=== PATIENT | male | born 1955 | race Caucasian/White ===

== ENCOUNTER 2016-11-20 19:07 | Emergency (ER) | payer OTHER ==
[~2016-11-20] VITALS: Ht 177.8 cm; Wt 78.5 kg
[~2016-11-20 19:07] MED LIST: ATOR80TA63 PO; BACL20TA PO; BEN50 PO; CEPH-568 PO; DULO60CA41 PO; ENAL5TAB85 PO; GABA-531 PO; HYDR-4100 PO; HYDR4TAB57 PO; LEVE500T13 PO; LOSA50TA3 PO; MET10 PO; METO-442 PO; OXYC10TA71 PO; PARO30TA62 PO; SUVO15TA PO; TAMS-11 PO; TRAM50TA92 PO; TRAZ-126 PO; WARF2.5T2 PO; WARF5TAB2 PO
[2016-11-20 19:19] VITALS: BP 107/81; PULSE 96; RESP 18; TEMP 97.3; O2SAT 98
--- NOTE | 2016-11-20 19:23 | NUR ---
Patient to ER bed 7 to gown for evaluation. Side rails up. Report given to Tico BARAHONA.
--- NOTE | 2016-11-20 19:25 | NUR ---
Pt bib for c/o left periorbital bruising from a fall today at home, unwitnessed. Pt is taking coumadin at home per . Pt uses a cane at home. Pt follows commands when asked. Addendum: 11/20/16 at 2002 by CHARLIE Pt is non verbal at moment. Per pt is alcoholic, is on methadone for pain. Pt is placed on manager monitoring and continuous pulse ox.
[2016-11-20 19:46] LABS: HEMATOCRIT 46.7 % (36-54); HEMOGLOBIN 15.4 g/dL (14.0-18.0); MEAN CORPUSCULAR HEMOGLOBIN 31 pg (27-31); MEAN CORPUSCULAR HGB CONC 33 % (32-36); MEAN CORPUSCULAR VOLUME 95 fL (79.0-98.0); PLATELET COUNT (AUTO) 101 K/uL (130-430); RED BLOOD CELL COUNT(AUTO) 4.91 MIL/uL (4.2-6.2); RED CELL DISTRIBUTION WIDTH 13.5 % (9.0-15.0); WHITE BLOOD COUNT (AUTO) 2.7 K/uL (4.8-10.8)
[2016-11-20] MEDS ORDERED: LIP40 PO (19:46)
[2016-11-20] MEDS ORDERED: HYDR-4100 PO (19:47)
[2016-11-20] MEDS ORDERED: MET10 PO (19:55)
--- NOTE | 2016-11-20 19:55 | NUR ---
Med recon done
[2016-11-20 19:57] LABS: CALCIUM 8.1 mg/dL (8.4-11.0); CREATININE 0.84 mg/dL (0.55-1.30); POTASSIUM 3.6 mmol/L (3.5-5.1)
[2016-11-20 20:02] LABS: ALBUMIN 3.7 g/dL (3.4-4.8); TOTAL BILIRUBIN 0.3 mg/dL (0.0-1.0); TOTAL PROTEIN, SERUM 7.7 g/dL (6.4-8.3)
[2016-11-20 20:13] LABS: ATYPICAL LYMPHOCYTES % 0 % (0-0); BAND % (MANUAL) 0 % (0-6); BASOPHILS % (MANUAL) 0 % (0-2); EOSINOPHILS % (MANUAL) 2 % (0-7); LYMPHOCYTES % (MANUAL) 38 % (20-46); MONOCYTES % (MANUAL) 11 % (0-11)
[2016-11-20] MEDS ORDERED: NACL 0.9% 1,000 ML IV ONE (20:17)
[2016-11-20 20:20] LABS: INR 4.6 (0.80-1.20); PROTHROMBIN TIME 52.8 SECS (9.5-12.5)
[2016-11-20] MEDS ORDERED: MORPHINE 2 MG/ML INJ. SYRINGE IVP ONE (20:30)
[2016-11-20] MEDS ORDERED: LORazepam 2 MG/ML VIAL IVP ONE (22:00)
--- NOTE | 2016-11-20 22:20 | NUR ---
Pt took out IV, bleeding controlled, Dr. Martinez notified. IV restarted to right AC 20 gauge by JUN Delatorre. IV infusion of NS continued.
[2016-11-20] MEDS ORDERED: LORazepam 2 MG/ML VIAL (FOR ER USE) ONE (22:31)
--- NOTE | 2016-11-20 22:32 | NUR ---
Pt given Ativan 2mg per MD order for agitation, pulling out IV earlier.
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
--- NOTE | 2016-11-20 22:47 | NUR ---
Report given to JUN Russell.
--- NOTE | 2016-11-20 23:00 | NUR ---
Pt has increased anxiety and is trying to get out of bed. Pt is a risk for fall due to ALOC. Dr. Martinez notified.
--- NOTE | 2016-11-20 23:00 | NUR ---
Reviewed sepsis protocol with Dr. Martinez. No change in orders at this time.
[2016-11-20] MEDS ORDERED: chlordiazePOXIDE HCL 25 MG CAPSULE PO ONE (23:15)
--- NOTE | 2016-11-20 23:15 | NUR ---
Pt placed in 2 point restraints on both wrists. Positive CMS before and after placed soft restraints. Pt tolerated well.
--- NOTE | 2016-11-21 00:15 | NUR ---
Restraints rechecked. Good CMS in upper extremities.
[2016-11-21 00:22] LABS: BILIRUBIN,URINE NEGATIVE (NEGATIVE); BLOOD, URINE NEGATIVE (NEGATIVE); CLARITY/URINE HAZY (CLEAR); COLOR,URINE YELLOW (YELLOW); GLUCOSE,URINE NEGATIVE (NEGATIVE); KETONES,URINE NEGATIVE (NEGATIVE); LEUKOCYTE ESTERASE ,URINE NEGATIVE (NEGATIVE); NITRITE, URINE POSITIVE (NEGATIVE); PROTEIN URINE 2+ (NEGATIVE); UROBILINOGEN,URINE 0.2 (0.2-1.0)
[2016-11-21 00:34] LABS: BACTERIA,URINE MANY /HPF (None Seen); RBC,URINE 0-3 /HPF (0-3)
[2016-11-21 00:35] LABS: MUCUS,URINE 1+ /LPF (None Seen)
[2016-11-21 00:36] LABS: BARBITURATE, URINE NEGATIVE (NEG <=200); BENZODIAZEPINE, URINE NEGATIVE (NEG <=150); CANNABINOID, URINE NEGATIVE (NEG <=50); COCAINE, URINE NEGATIVE (NEG <=150); METHAMPHETAMINES SCREEN,URINE NEGATIVE (NEG <=500); PHENCYCLIDINE SCREEN,URINE NEGATIVE (NEG <=25); URINE AMPHETAMINE NEGATIVE (NEG <=500); URINE METHADONE POSITIVE (NEG <=200)
[2016-11-21 00:37] LABS: OPIATE, URINE POSITIVE (NEG <=100); UR TRICYCLIC ANTIDEPRESSANTS NEGATIVE (NEG <=300); URINE OXYCODONE SCREEN POSITIVE (NEG <=100); URINE PROPOXYPHENE SCREEN NEGATIVE (NEG <=300)
--- NOTE | 2016-11-21 01:15 | NUR ---
Restraints rechecked. Good CMS in upper extremities. Restraints released and placed back on.
[2016-11-21] MEDS ORDERED: LORazepam 2 MG/ML VIAL IVP ONE (01:45)
[2016-11-21] MEDS ORDERED: LORazepam 2 MG/ML VIAL (FOR ER USE) ONE (01:53)
--- NOTE | 2016-11-21 02:15 | NUR ---
Restraints rechecked. Good CMS in upper extremities.
--- NOTE | 2016-11-21 02:24 | NUR ---
Consent signed per patient agreeing to administration of blood. Blood has been type and crossmatched. Blood sent from blood bank. Information on unit of blood checked against patient wristband at bedside by two nurses. All information matches. Patient or responsible democrat informed of potential complications associated with blood transfusion. Informed of possible transfusion reaction symptoms. Aware of need to notify nurse at once of itching, shortness of breath, flushing, feeling of impending doom, or other symptoms not previously present. Vital signs taken within 5 minutes prior to initiation of transfusion. RN will remain with patient for first 15 minutes of transfusion at which time vital signs will be re-assessed.
[2016-11-21 03:20] VITALS: BP 142/81; PULSE 86; RESP 18; TEMP 97.3; O2SAT 100
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
== END 2016-11-21 03:20 ==
LOC: SED 19:07
DX: S00.12XA Contusion of left eyelid and periocular area, initial encounter (principal); S00.81XA Abrasion of other part of head, initial encounter; S09.90XA Unspecified injury of head, initial encounter; R41.82 Altered mental status, unspecified; F10.229 Alcohol dependence with intoxication, unspecified; C18.9 Malignant neoplasm of colon, unspecified; I25.2 Old myocardial infarction; E11.9 Type 2 diabetes mellitus without complications; K21.9 Gastro-esophageal reflux disease without esophagitis; I10 Essential (primary) hypertension; W19.XXXA Unspecified fall, initial encounter; Y93.89 Activity, other specified; Y99.8 Other external cause status; Y92.89 Other specified places as the place of occurrence of the external cause
CPT/HCPCS: 36415; 70450; 70486; 80053; 80307; 81000; 85007; 85027; 85610; 85730; 86900; 86901; 87086; 93005; 96361; 96374; 96375; 96376; 99285; G0482; J2060 ×2; J2270; J7040; P9059; 87186-TC

== ENCOUNTER 2017-01-05 14:56 | Inpatient (IN) | payer OTHER ==
[~2017-01-05] VITALS: Ht 177.8 cm; Wt 88.5 kg
[2017-01-05 14:56] VITALS: BP_SYST 112
[~2017-01-05 14:56] MED LIST changes: -ATOR80TA63 PO; -BACL20TA PO; -BEN50 PO; -CEPH-568 PO; -GABA-531 PO; -HYDR4TAB57 PO; -LEVE500T13 PO; +LIP40 PO; -LOSA50TA3 PO; -OXYC10TA71 PO; -PARO30TA62 PO; -SUVO15TA PO; -TRAM50TA92 PO; -WARF5TAB2 PO
--- NOTE | 2017-01-05 15:00 | NUR ---
pt. to bed 2, assumed pt. care
--- NOTE | 2017-01-05 15:00 | NUR ---
dr. solorzano at bedside examining the pt.
[2017-01-05] MEDS ORDERED: LORazepam 2 MG/ML VIAL (FOR ER USE) IVP ONE ×3 (15:15→16:30)
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
--- NOTE | 2017-01-05 15:40 | NUR ---
pt. out to radiolody via koffi
[2017-01-05 15:57] LABS: RED BLOOD CELL COUNT(AUTO) 3.39 MIL/uL (4.2-6.2)
[2017-01-05 16:00] LABS: CALCIUM 7.8 mg/dL (8.4-11.0); CREATININE 0.71 mg/dL (0.55-1.30); POTASSIUM 3.3 mmol/L (3.5-5.1)
--- NOTE | 2017-01-05 16:00 | NUR ---
pt. back to bed 2 from radiology via k[facility]
[2017-01-05 16:03] LABS: HEMATOCRIT 32.5 % (36-54); MEAN CORPUSCULAR HEMOGLOBIN 33 pg (27-31); MEAN CORPUSCULAR HGB CONC 34 % (32-36); MEAN CORPUSCULAR VOLUME 96 fL (79.0-98.0); PLATELET COUNT (AUTO) 166 K/uL (130-430)
[2017-01-05 16:06] LABS: WHITE BLOOD COUNT (AUTO) 2.6 K/uL (4.8-10.8)
[2017-01-05 16:12] LABS: ALBUMIN 2.8 g/dL (3.4-4.8); TOTAL BILIRUBIN 0.3 mg/dL (0.0-1.0); TOTAL PROTEIN, SERUM 6.4 g/dL (6.4-8.3)
[2017-01-05 16:14] LABS: BAND % (MANUAL) 5 % (0-6); BASOPHILS % (MANUAL) 0 % (0-2); EOSINOPHILS % (MANUAL) 2 % (0-7); LYMPHOCYTES % (MANUAL) 29 % (20-46); MONOCYTES % (MANUAL) 31 % (0-11)
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
[2017-01-05] MEDS ORDERED: NACL 0.9% 1,000 ML IV ONE (16:30)
[2017-01-05] MEDS ORDERED: MORPHINE 4 MG/ML INJ. SYRINGE IVP ONE (16:45)
--- NOTE | 2017-01-05 17:00 | NUR ---
pt. agitated, unable to run CT scan since pt. not able to stop moving
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
--- NOTE | 2017-01-05 17:30 | NUR ---
restraining orders received as per MD pt. very agitates, continuously trying to get out of bed, behavioral restraint applied
[2017-01-05] MEDS ORDERED: HALOPERIDOL LACTATE 5 MG/ML VIAL IM ONE (17:45)
--- NOTE | 2017-01-05 18:20 | NUR ---
haldol 5 mg admin as per MD orders, pt. tolerated well
--- NOTE | 2017-01-05 18:25 | NUR ---
pt. to to CT via ceci
--- NOTE | 2017-01-05 18:46 | NUR ---
Patient returned from CT. Patient was again thrashing around in CT, unable to perform ordered studies. Dr. Galloway is aware.
[2017-01-05] MEDS ORDERED: DIPHENHYDRAMINE INJ 50 MG/ML VIAL IVP ONE (19:00)
[2017-01-05] MEDS ORDERED: MIDAZOLAM HCL 5 MG/5 ML VIAL IVP ONE (22:00)
[2017-01-05] MEDS ORDERED: DIAZEPAM 10 MG/2 ML DISP.SYRIN IVP ONE (22:00)
--- NOTE | 2017-01-05 22:50 | NUR ---
Patient will be admitted to care of dr. mane. Admitted to med surg unit. Will go to room 132 a. Belongings list completed. Summary report printed. Report will be given at bedside.
[2017-01-05 23:03] VITALS: BP_SYST 160
--- NOTE | 2017-01-05 23:03 | NUR ---
Admission Note Received patient from ER with diagnosis of ALOC. Initial Plan of Care discussed-patient verbalized understanding. Family at bedside. Oriented to room, call light, pain management and safety.
[2017-01-05] MEDS ORDERED: ZOLPIDEM TARTRATE 5 MG TABLET PO PRN (23:30)
[2017-01-05] MEDS ORDERED: ACETAMINOPHEN 325 MG TABLET PO PRN (23:30)
[2017-01-05] MEDS ORDERED: chlordiazePOXIDE HCL 25 MG CAPSULE PO PRN (23:30)
[2017-01-05] MEDS ORDERED: DOCUSATE SODIUM 100 MG CAPSULE PO PRN (23:30)
[2017-01-05] MEDS ORDERED: ONDANSETRON HCL 4 MG/2 ML VIAL IVP PRN (23:30)
--- NOTE | 2017-01-05 23:30 | NUR ---
Initial Notes Received patient laying in bed. Patient lethargic, arousable to name and light shaking. Patient oriented only to name at this time, extremely drowsy. Patient appears in no acute distress or pain at this time. Breathing even and unlabored on room air. Vital signs stable. Attempted to educate patient on use of call light for assistance and fall precautions, patient unable to do drowsyness. Fall precautions in place, call light in hand, will continue to monitor. Siderail padding in use, seizure precautions in place.
--- NOTE | 2017-01-05 23:41 | NUR ---
left message for Alexa Angeles regarding pt's admission. No return call at this time.
[2017-01-05] MEDS: POTASSIUM CHLORIDE 10 MEQ TAB.PRT.SR PO PRN (23:56)
[2017-01-06] VITALS (7 sets, daily range): BP systolic 110–187
[2017-01-06] MEDS: NACL 0.9% 1,000 ML IV SCH ×3 (00:16→23:53)
--- NOTE | 2017-01-06 01:30 | NUR ---
MD communication Spoke with Dr. Colon regarding patient's elevated BP. Orders received.
[2017-01-06] MEDS ORDERED: cloNIDine HCL 0.2 MG TABLET PO PRN (01:45)
[2017-01-06] MEDS: POTASSIUM CHLORIDE 10 MEQ TAB.PRT.SR PO PRN ×2 (01:54→08:40)
--- NOTE | 2017-01-06 02:29 | NUR ---
Rounds Patient resting in bed with eyes closed, easily aroused. Patient more awake/alert, able to answer questions appropriately. Patient denies any acute distress or pain. Breathing even and unlabored. IV site patent/clean/dry. Assisted patient to bathroom, slightly unsteady gait. Needs addressed. Call light in hand, fall precautions in place, will continue to monitor.
--- NOTE | 2017-01-06 03:48 | NUR ---
Notes Patient getting out of bed unassisted, stating he is going home now. Assisted patient back to bed. Explained to patient that he is extremely unsteady at this time, and easily disoriented. Attempted to contact patient's Alexa via telephone per patient's request to come pick patient up. No answer. Educated patient on importance of continuing treatment and high risk of hurting self if patient leaves at this time. Patient agreed to stay. Patient appears in no acute distress but remains unsteady on feet, and disoriented/forgetful at times. Call light in hand, fall precautions in place. Will continue to monitor.
--- NOTE | 2017-01-06 05:49 | NUR ---
Family Communication Spoke with Alexa, patient's , on telephone to update family on patient's status. is aware of patient's location, and reason for admission. Patient was able to talk to .
--- NOTE | 2017-01-06 06:39 | NUR ---
Closing Notes Patient resting in bed with eyes closed, easily aroused. Patient denies any acute distress or pain when asked. Breathing even and unlabored on room air. IV site patent/clean/dry, no S/S infection/infiltration noted. Needs addressed throughout shift. Call light in hand, fall precautions in place. Will continue to monitor for changes and safety, and endorse all patient care/needs to oncoming nurse.
[2017-01-06 07:01] LABS: HEMATOCRIT 37.4 % (36-54); HEMOGLOBIN 12.5 g/dL (14.0-18.0); MEAN CORPUSCULAR HEMOGLOBIN 32 pg (27-31); MEAN CORPUSCULAR HGB CONC 34 % (32-36); MEAN CORPUSCULAR VOLUME 96 fL (79.0-98.0); PLATELET COUNT (AUTO) 176 K/uL (130-430); RED BLOOD CELL COUNT(AUTO) 3.89 MIL/uL (4.2-6.2); RED CELL DISTRIBUTION WIDTH 14.7 % (9.0-15.0); WHITE BLOOD COUNT (AUTO) 3.9 K/uL (4.8-10.8)
[2017-01-06 07:13] LABS: CALCIUM 8.1 mg/dL (8.4-11.0); CREATININE 0.82 mg/dL (0.55-1.30); POTASSIUM 3.1 mmol/L (3.5-5.1)
--- NOTE | 2017-01-06 07:32 | NUR ---
AM Rounds: Received pt sitting semi-fowlers in bed. No acute signs of distress noted at this time. Pt is breathing even and unlabored on room air and he is easily arousable to name. No tremors or seizure activity noted. IV intact to RUE with no redness or swelling noted to site. Call light in reach. Fall precautions in place. Bed alarm on and bed in lowest position. No other needs noted at this time. Continue to monitor.
[2017-01-06] MEDS: TAMSULOSIN HCL 0.4 MG CAP PO SCH (08:40)
[2017-01-06] MEDS: ATORVASTATIN 20 MG TABLET PO SCH (08:40)
[2017-01-06] MEDS: METHADONE HCL 10 MG TABLET PO SCH ×3 (08:40→20:25)
[2017-01-06] MEDS: DULoxetine HCL 30 MG CAPSULE.DR (CYMBALTA) PO SCH (08:40)
[2017-01-06] MEDS: METOPROLOL TARTRATE 50 MG TABLET PO SCH ×2 (08:41→20:26)
[2017-01-06] MEDS: MAGNESIUM SULFATE 50 ML IV PRN (08:41)
[2017-01-06] MEDS ORDERED: traZODone HCL 50 MG TABLET (DESYREL) PO SCH (09:00)
[2017-01-06] MEDS ORDERED: ENALAPRIL MALEATE 5 MG TABLET (VASOTEC) PO SCH (09:00)
[2017-01-06 09:35] LABS: BAND % (MANUAL) 0 % (0-6); BASOPHILS % (MANUAL) 0 % (0-2); EOSINOPHILS % (MANUAL) 2 % (0-7); LYMPHOCYTES % (MANUAL) 11 % (20-46); MONOCYTES % (MANUAL) 26 % (0-11)
--- NOTE | 2017-01-06 09:48 | NUR ---
RN Rounds: AM meds given per MD order. Pt tolerates well. IV fluids and Mag replacement infusing well at this time. Call light in reach. Fall precautions in place. Continue to monitor.
[2017-01-06] MEDS ORDERED: POTASSIUM CHLORIDE 40 MEQ, LIDOCAINE JECT 2% PF 100 MG 50 MG in NS 250 ML IV ONE (10:15)
--- NOTE | 2017-01-06 10:24 | NUR ---
PSYCH CONSULT Spoke with Teena regarding request for consultation with Dr. Murguia ([phone]) for reason: depression.
[2017-01-06] MEDS ORDERED: HYDROCHLOROTHIAZIDE 25 MG TABLET (HCTZ) PO ONE (10:45)
[2017-01-06 10:51] LABS: INR 1.3 (0.80-1.20)
[2017-01-06] MEDS: FOLIC ACID 1 MG, THIAMINE HCL 100 MG, MAGNESIUM SULFATE 1 GM, MVI 10 ML in NACL 0.9% 1,... IV SCH (11:34)
--- NOTE | 2017-01-06 11:37 | NUR ---
Rounds: Pt sitting semi-fowlers in bed. No acute signs of distress noted. Banana bag infusing well to RUE with no redness or swelling noted to site. Fall precautions in place. Call light in reach. Continue to monitor.
--- NOTE | 2017-01-06 13:33 | NUR ---
IV RE-INSERTION: Redness and swelling noted to IV site. Restarted on right forearm. Successful after [1] attempt. Resumed current IVF and banana bag. Will observe for any signs of infiltration. IV catheter removed to RUE and elevated on pillow.
--- NOTE | 2017-01-06 15:09 | NUR ---
Rounds: Abdominal ultrasound in progress. IV intact to RUE and infusing fluids well. Call light in reach. Continue to monitor.
[2017-01-06] MEDS: FLUTICASONE PROPIONATE 50 mCg/SPRAY 16 GM NS SCH ×2 (17:29→20:25)
[2017-01-06] MEDS: WARFARIN SODIUM 2.5 MG TABLET PO SCH (17:31)
--- NOTE | 2017-01-06 17:47 | NUR ---
Rounds: Pt sitting semi-fowlers in bed. No acute signs of distress noted. Pt medicated per MD order. Pt tolerates well. Call light in reach. Fall and seizure precautions in place. Continue to monitor.
--- NOTE | 2017-01-06 18:16 | NUR ---
Closing Note: Pt sitting semi-fowlers in bed and eating dinner at this time. IV intact to RUE with no redness or swelling noted to site. Pt denies pain. No seizure activity noted. Pt denies suicidal ideation. Call light in reach. Fall and seizure precautions in place. No other needs noted at this time. Pt is able to make needs known and verbalize understanding. Endorse plan of care to TY BARAHONA.
--- NOTE | 2017-01-06 20:00 | NUR ---
Initial Notes Received patient resting in bed, awake, alert, oriented. Patient denies any acute distress or pain at this time. Vital signs stable. Breathing even and unlabored on room air. IV site patent/clean/dry. Skin tear/scab noted to left arm. Educated patient on use of call light for assistance and fall precautions, patient verbalized understanding. Call light in hand, will continue to monitor.
[2017-01-06] MEDS: ENOXAPARIN SODIUM 40 MG/0.4 ML SYRINGE SUBCUT SCH (20:24)
[2017-01-06] MEDS: traZODone HCL 50 MG TABLET (DESYREL) PO SCH (20:26)
[2017-01-06] MEDS: ENALAPRIL MALEATE 10 MG TABLET (VASOTEC) PO SCH (20:27)
--- NOTE | 2017-01-06 22:00 | NUR ---
Rounds Patient resting in bed with eyes closed, easily aroused. Patient denies any acute distress or pain at this time. Breathing is even and unlabored. IV site patent/clean/dry. Needs addressed. Call light in hand, fall precautions in place, siderail padding in use. Will continue to monitor.
[2017-01-06] MEDS: HYDROcodone/ACETAMIN 10-325 MG TAB PO PRN (23:51)
[2017-01-07] VITALS (8 sets, daily range): BP systolic 110–150
--- NOTE | 2017-01-07 | NUR ---
Rounds Patient resting in bed, awake. Patient denies any acute distress. Medicated patient for pain per MD orders. Breathing is even and unlabored. IV site patent/clean/dry. Assisted patient to ambulate around room. Needs addressed. Call light in hand, fall precautions in place. Will continue to monitor.
--- NOTE | 2017-01-07 02:10 | NUR ---
Rounds and Endorsement of patient Patient resting in bed with eyes closed, easily aroused. Patient denies any acute distress or pain. Breathing is even and unlabored. IV site patent/clean/dry. Call light in hand. Endorse patient to Francisco BARAHONA.
--- NOTE | 2017-01-07 02:15 | NUR ---
assumed care of the pt. 4 the remainder of the shift.damir;rn provided the pt's info/data.pt.presents stable status. pt.presents quiescent affect;calm,asleep.iv fluids infusing:pt.receiving the administration of ns:&banana-bag. alternating.i recieve the pt.w/ the administraton of the ns.via iv access:lt.antecubital.pt.utlizing urinal.call light w/in pt's reach.o2 @room air.no distress/discomfort manifested.
[2017-01-07] MEDS: MORPHINE 2 MG/ML INJ. SYRINGE IVP PRN ×2 (02:47→20:34)
--- NOTE | 2017-01-07 02:50 | NUR ---
pt.requested pain medication.i have administered morphine;2mg ivp.i have emptied the urinal.i conveyed 2 the pt. that snacks r available.pt.requested snacks.i have provided the snacks.2 f/u re;pain efficacy / pain mgx protocol. call light placed w/in pt's reach.
--- NOTE | 2017-01-07 05:16 | NUR ---
pt.assessed.iv fluids assessed.[facility]in[facility] laboratory animal care has drawn the blood samples.no request@this hour:located the urinal 4 the pt. call light palced w/in the pt's reach.
[2017-01-07] MEDS: NACL 0.9% 1,000 ML IV SCH ×2 (05:23→10:58)
[2017-01-07 06:49] LABS: CREATININE 0.76 mg/dL (0.55-1.30)
[2017-01-07] MEDS: HYDROcodone/ACETAMIN 10-325 MG TAB PO PRN (06:52)
[2017-01-07 07:12] LABS: HEMATOCRIT 32.3 % (36-54); HEMOGLOBIN 10.9 g/dL (14.0-18.0); MEAN CORPUSCULAR HEMOGLOBIN 32 pg (27-31); MEAN CORPUSCULAR HGB CONC 34 % (32-36); MEAN CORPUSCULAR VOLUME 96 fL (79.0-98.0); PLATELET COUNT (AUTO) 158 K/uL (130-430); RED BLOOD CELL COUNT(AUTO) 3.37 MIL/uL (4.2-6.2)
[2017-01-07 07:20] LABS: INR 1.1 (0.80-1.20); PROTHROMBIN TIME 11.8 SECS (9.5-12.5)
[2017-01-07 07:34] LABS: WHITE BLOOD COUNT (AUTO) 2.8 K/uL (4.8-10.8)
[2017-01-07] MEDS: DULoxetine HCL 30 MG CAPSULE.DR (CYMBALTA) PO SCH (09:35)
[2017-01-07] MEDS: MULTIVITAMINS TAB 1 TABLET PO SCH (09:35)
[2017-01-07] MEDS: MAGNESIUM SULFATE 50 ML IV PRN (09:35)
[2017-01-07] MEDS: FLUTICASONE PROPIONATE 50 mCg/SPRAY 16 GM NS SCH ×2 (09:35→21:00)
[2017-01-07] MEDS: METOPROLOL TARTRATE 50 MG TABLET PO SCH ×2 (09:36→20:32)
[2017-01-07] MEDS: HYDROCHLOROTHIAZIDE 25 MG TABLET (HCTZ) PO SCH (09:36)
[2017-01-07] MEDS: TAMSULOSIN HCL 0.4 MG CAP PO SCH (09:37)
[2017-01-07] MEDS: ENALAPRIL MALEATE 10 MG TABLET (VASOTEC) PO SCH ×2 (09:37→20:32)
[2017-01-07] MEDS: METHADONE HCL 10 MG TABLET PO SCH ×3 (09:37→20:32)
[2017-01-07] MEDS: POTASSIUM CHLORIDE 10 MEQ TAB.PRT.SR PO PRN ×2 (09:37→20:31)
[2017-01-07] MEDS: ATORVASTATIN 20 MG TABLET PO SCH (09:37)
[2017-01-07 09:41] LABS: ATYPICAL LYMPHOCYTES % 0 % (0-0); BAND % (MANUAL) 0 % (0-6); BASOPHILS % (MANUAL) 0 % (0-2); EOSINOPHILS % (MANUAL) 2 % (0-7); LYMPHOCYTES % (MANUAL) 12 % (20-46); MONOCYTES % (MANUAL) 31 % (0-11)
[2017-01-07] MEDS ORDERED: MAGNESIUM SULFATE 50 ML IV ONE (09:45)
[2017-01-07] MEDS: THIAMINE HCL 100 MG TABLET PO SCH (10:03)
[2017-01-07] MEDS: FOLIC ACID 1 MG, THIAMINE HCL 100 MG, MAGNESIUM SULFATE 1 GM, MVI 10 ML in NACL 0.9% 1,... IV SCH (10:54)
[2017-01-07] MEDS: POTASSIUM CHLORIDE 40 MEQ, LIDOCAINE JECT 2% PF 100 MG 50 MG in NS 250 ML IV ONE ×2 (11:00→12:24)
[2017-01-07] MEDS: WARFARIN SODIUM 2.5 MG TABLET PO SCH (17:28)
--- NOTE | 2017-01-07 18:47 | NUR ---
OPENING NOTE/00 RECEIVED REPORT FROM OFF GOING COMPENSATION ADJUSTER NURSE. PATIENT RESTING COMFORTABLY, COMPLAINTS OF MODERATE PAIN. CHRONIC PAIN. NO NAUSEA, OR VOMITING AT THIS TIME. PATIENT HAS NO NOTABLE SIGNS OF DISTRESS. PATIENTS BED IN LOWEST POSITION, CALL LIGHT WITHIN REACH, PATIENTS BED ALARM IS ON, AND 2 SIDE RAILS ARE UP. PATIENT BELONGINGS WITHIN REACH. WILL CONTINUE TO MONITOR FOR CHANGES IN STATUS. LATE CHARTING DUE TO PATIENT CARE.
--- NOTE | 2017-01-07 18:48 | NUR ---
1200 NOTE PATIENT RESTING COMFORTABLY, COMPLAINTS OF MODERATE PAIN. CHRONIC PAIN. PAIN AT TOLERABLE LEVEL PER PATIENT. NO NAUSEA, OR VOMITING AT THIS TIME. PATIENT HAS NO NOTABLE SIGNS OF DISTRESS. PATIENTS BED IN LOWEST POSITION, CALL LIGHT WITHIN REACH, PATIENTS BED ALARM IS ON, AND 2 SIDE RAILS ARE UP. PATIENT BELONGINGS WITHIN REACH. WILL CONTINUE TO MONITOR FOR CHANGES IN STATUS.
--- NOTE | 2017-01-07 18:49 | NUR ---
1800 CLOSING NOTE PATIENT RESTING COMFORTABLY AT THIS TIME. AWAITING TO GIVE REPORT TO DENTURES LAB TECHNICIAN NURSE. PATIENT IS AAOX4, AND NO COMPLAINTS OF PAIN AT THIS TIME. NO NOTABLE SIGNS OF DISTRESS AT THIS TIME. PATIENTS BED IN LOWEST POSITION, CALL LIGHT WITHIN REACH, AND SIDE RAILS ARE UP. WILL CONTINUE TO MONITOR PATIENT FOR CHANGES IN STATUS.
--- NOTE | 2017-01-07 19:05 | NUR ---
OPENING NOTES REPORT GIVEN AT BEDSIDE BY DAY SHIFT NURSE. PATIENT IS AAO X4. NO S/S OF ACUTE DISTRESS NOTED. IV PATENT AND FLUIDS ARE INFUSING. BED IN LOWEST POSITION, CALL LIGHT WITHIN REACH. WILL CONTINUE TO MONITOR.
[2017-01-07] MEDS: traZODone HCL 50 MG TABLET (DESYREL) PO SCH (20:31)
[2017-01-07] MEDS: ENOXAPARIN SODIUM 40 MG/0.4 ML SYRINGE SUBCUT SCH (20:32)
--- NOTE | 2017-01-07 23:27 | NUR ---
ROUNDS PATIENT SLEEPING WITH VISIBLE RISE AND FALL OF CHEST NOTED, WITH AUDIBLE HICCUPS. NO S/S OF ACUTE DISTRESS NOTED. SITTER PRESENT IN ROOM. FALL PRECAUTIONS IN PLACE, WILL CONTINUE TO MONITOR.
[2017-01-08] MEDS: NACL 0.9% 1,000 ML IV SCH ×3 (01:30→22:38)
--- NOTE | 2017-01-08 02:07 | NUR ---
PAIN PATIENT COMPLAINS OF PAIN /. WILL MEDICATE PER ORDERS.
[2017-01-08] MEDS: MORPHINE 2 MG/ML INJ. SYRINGE IVP PRN (02:20)
[2017-01-08] MEDS: chlordiazePOXIDE HCL 25 MG CAPSULE PO PRN (02:21)
--- NOTE | 2017-01-08 03:51 | NUR ---
ROUNDS PATIENT SLEEPING AND SNORING AUDIBLY. NO S/S OF ACUTE DISTRESS NOTED. WILL CONTINUE TO MONITOR. CALL LIGHT WITHIN REACH. SITTER AT THE BEDSIDE.
[2017-01-08 04:09] VITALS: BP_SYST 111
--- NOTE | 2017-01-08 05:30 | NUR ---
ROUNDS PATIENT SLEEPING AND SNORING AUDIBLY. NO S/S OF ACUTE DISTRESS NOTED. WILL CONTINUE TO MONITOR. CALL LIGHT WITHIN REACH. SITTER AT THE BEDSIDE.
[2017-01-08 06:34] LABS: INR 1.1 (0.80-1.20); PROTHROMBIN TIME 12.1 SECS (9.5-12.5)
[2017-01-08 06:39] LABS: CALCIUM 8.2 mg/dL (8.4-11.0); CREATININE 0.67 mg/dL (0.55-1.30); POTASSIUM 4.1 mmol/L (3.5-5.1)
[2017-01-08 07:01] LABS: BASOPHILS % (AUTO) 0.7 % (0.0-2.0); EOSINOPHILS # (AUTO) 0.1 K/uL (0.0-0.4); EOSINOPHILS % (AUTO) 2.1 % (0.0-4.0); HEMATOCRIT 32.3 % (36-54); HEMOGLOBIN 10.8 g/dL (14.0-18.0); LYMPHOCYTES # (AUTO) 0.6 K/uL (1.0-5.5); LYMPHOCYTES % (AUTO) 10.3 % (20.5-51.5); MEAN CORPUSCULAR HEMOGLOBIN 32 pg (27-31); MEAN CORPUSCULAR HGB CONC 33 % (32-36); MEAN CORPUSCULAR VOLUME 97 fL (79.0-98.0); MONOCYTES # (AUTO) 1.1 K/uL (0.0-1.0); MONOCYTES % (AUTO) 19.4 % (1.7-9.3); NEUTROPHILS # (AUTO) 3.6 K/uL (1.8-7.7); NEUTROPHILS % (AUTO) 67.5 % (40.0-70.0); PLATELET COUNT (AUTO) 164 K/uL (130-430); RED BLOOD CELL COUNT(AUTO) 3.32 MIL/uL (4.2-6.2); RED CELL DISTRIBUTION WIDTH 14.6 % (9.0-15.0)
[2017-01-08 07:13] LABS: WHITE BLOOD COUNT (AUTO) 5.4 K/uL (4.8-10.8)
--- NOTE | 2017-01-08 07:15 | NUR ---
CLOSING NOTES GAVE REPORT AT BEDSIDE WITH DAYSHIFT NURSE TATYANA. PATIENT SITTING UP IN BED. HANDS ARE SLIGHTLY SHAKY, BUT PATIENT IS STEADY TO WALK TO THE BATHROOM WITH ASSIST. NO S/S OF ACUTE DISTRESS NOTED. WILL ENDORSE CARE TO DAY SHIFT NURSE. FALL PRECAUTIONS IN PLACE. CALL LIGHT WITHIN REACH.
[2017-01-08 07:19] VITALS: BP_SYST 125
--- NOTE | 2017-01-08 08:00 | NUR ---
NOTE PT SITTING UP IN BED EATING HIS BREAKFAST. PT SHAKING AND TREMBLING WHILE EATING. IVF'S IN LEFT FOREARM INTACT AND PATENT INFUSING IVF'S AT THIS TIME. NO SOB/RESP DISTRESS OR PAIN/DISCOMFORT WAS NOTED. CALL LIGHT WITHIN REACH. NO NEEDS NOTED AT THIS TIME.
[2017-01-08] MEDS: MULTIVITAMINS TAB 1 TABLET PO SCH (08:38)
[2017-01-08] MEDS: HYDROCHLOROTHIAZIDE 25 MG TABLET (HCTZ) PO SCH (08:39)
[2017-01-08] MEDS: ENALAPRIL MALEATE 10 MG TABLET (VASOTEC) PO SCH ×2 (08:39→21:01)
[2017-01-08] MEDS: METHADONE HCL 10 MG TABLET PO SCH ×3 (08:40→21:02)
[2017-01-08] MEDS: ATORVASTATIN 20 MG TABLET PO SCH (08:40)
[2017-01-08] MEDS: METOPROLOL TARTRATE 50 MG TABLET PO SCH ×2 (08:40→21:03)
[2017-01-08] MEDS: DULoxetine HCL 30 MG CAPSULE.DR (CYMBALTA) PO SCH (08:41)
[2017-01-08] MEDS: THIAMINE HCL 100 MG TABLET PO SCH (08:41)
[2017-01-08] MEDS: TAMSULOSIN HCL 0.4 MG CAP PO SCH (08:41)
[2017-01-08] MEDS: FLUTICASONE PROPIONATE 50 mCg/SPRAY 16 GM NS SCH ×2 (08:44→21:00)
[2017-01-08] MEDS ORDERED: MAGNESIUM SULFATE 4 GM in D5W 250 ML IV ONE (10:15)
[2017-01-08] MEDS: MAGNESIUM SULFATE 50 ML IV PRN (10:21)
--- NOTE | 2017-01-08 10:30 | NUR ---
NOTE PT AMBULATING WITH PHYSICAL THERAPY IN HALLWAY WITH IV POLE AND FWW, PT SHAKING AND TREMBLING, WHICH PT STATES IS A NORM FOR HIM. NO SEIZURE ACTIVITY NOTED AT THIS TIME. NO SOB/RESP DISTRESS OR ANY NEEDS NOTED AT THIS TIME. DR MENJIVAR ON THE FLOOR AND ASSESSMENT COMPLETED AT THIS TIME.
--- NOTE | 2017-01-08 10:45 | NUR ---
DC PLANNING: LM to the pt' spouse /Alexa and his dtr, Joan re: discharge planning order to SNF for continuation of ETOH detox and physical therapy.
--- NOTE | 2017-01-08 11:00 | NUR ---
DISCHARGE PLANNING DC planing order for SNF placement. Called [facility] [phone] left voice message for CM requesting for contracted SNF list to be faxed. DCP will follow up. Addendum: 01/08/17 at 1116 by Tanesha ANTOINE Meanwhile; faxed SNF referral to [phone]. Will follow up. Addendum: 01/08/17 at 1426 by Jose Alberto Arevalo RN >> F/U authorizaion to snf from [facility] [phone] . The pt. is accepted at [facility] per Cecelia. Diallo. >> Dr. Colon made aware of the transfer status. He stated he will follow the pt. at [facility]. and RN to call back for DC order once the insurance approved.
--- NOTE | 2017-01-08 11:43 | NUR ---
NOTE DR MENJIVAR CALLED AND NOTIFIED THAT 2GM MAGNESIUM IVPB WAS GIVEN TODAY, STATED THEN HOLD 4GM MAGNESIUM IVPB. WILL DRAW LABS TOMORROW.
[2017-01-08] MEDS: FOLIC ACID 1 MG, THIAMINE HCL 100 MG, MAGNESIUM SULFATE 1 GM, MVI 10 ML in NACL 0.9% 1,... IV SCH (11:54)
--- NOTE | 2017-01-08 12:41 | NUR ---
NOTE PT RESTING IN BED AT THIS TIME. NO NEEDS NOTED. PT STABLE AT THIS TIME. CALL LIGHT WITHIN REACH.
[2017-01-08 13:19] VITALS: BP_SYST 94
--- NOTE | 2017-01-08 14:45 | NUR ---
NOTE PT DRESSED IN STREET CLOTHES AND GOT OOB - STANDING AT BEDSIDE. PT WANTS TO WALK IN THE HALLWAY. PT WAS ASSISTED TO AMBULATE IN HALLWAY WITH IV POLE AT THIS TIME. PT AMBULATED WITH STEADY GAIT, PT STILL SHAKING AND TREMORS IN HANDS. PT TOLERATED AMBULATION WELL.
--- NOTE | 2017-01-08 15:21 | NUR ---
PHYSICAL THERAPY CO-SIGN The Physical Therapy Progress Notes documented by Advertising Intern have been reviewed. I CONCUR W/CHURCH SECRETARY NOTE; CONT PER TX PLAN Reviewed/Co-Signed by: Kayli Gooden PT Documentation Done by: RHIANNON BROWN CHURCH SECRETARY Addendum: 01/08/17 at 1522 by Kayli Gooden PT Amended: Links added.
[2017-01-08 17:25] VITALS: BP_SYST 100
[2017-01-08] MEDS: WARFARIN SODIUM 4 MG TABLET PO SCH (17:45)
--- NOTE | 2017-01-08 18:00 | NUR ---
NOTE PT SITTING UP IN BED EATING HIS DINNER. NO NEEDS NOTED. IVF'S INFUSING WELL THROUGH LEFT IV SITE. NO SOB/RESP DISTRESS OR PAIN/DISCOMFORT NOTED AT THIS TIME. PT'S HANDS ARE STILL SHAKY WHEN EATING HIS DINNER. PT IS ORIENTED X3. CALL LIGHT WITHIN REACH AT THIS TIME.
--- NOTE | 2017-01-08 19:30 | NUR ---
Rounds Received patient lying in bed resting, denies of any pain, no acute distress noted, IV site intact and patent, IV fluid infusing well. Instructed patient to call nurse when getting out of bed, call light within reach. be alarm on.
[2017-01-08 20:00] VITALS: BP_SYST 133
--- NOTE | 2017-01-08 20:34 | NUR ---
Rounds Assisted patient to go to the bathroom and back to bed, unsteady gait noted.
[2017-01-08] MEDS: ENOXAPARIN SODIUM 40 MG/0.4 ML SYRINGE SUBCUT SCH (21:01)
[2017-01-08] MEDS: traZODone HCL 50 MG TABLET (DESYREL) PO SCH (21:03)
--- NOTE | 2017-01-08 23:30 | NUR ---
Medication Flonase 0.05% nasal spray not available per warehouse sorter.
[2017-01-09] VITALS: BP_SYST 129
--- NOTE | 2017-01-09 01:11 | NUR ---
Rounds Patient resting quietly, no s/s of any pain, no acute distress noted. call light within reach.
[2017-01-09] MEDS: HYDROcodone/ACETAMIN 10-325 MG TAB PO PRN (02:41)
[2017-01-09 04:00] VITALS: BP_SYST 126
--- NOTE | 2017-01-09 04:32 | NUR ---
Notes Patient frequently going to the bathroom to urinate. unsteady gait noted. will continue to monitor patient.
[2017-01-09] MEDS: MORPHINE 2 MG/ML INJ. SYRINGE IVP PRN (06:03)
--- NOTE | 2017-01-09 06:37 | NUR ---
Closing notes Patient slept intermittently most of the night. no other changes noted on patient current condition.
--- NOTE | 2017-01-09 07:10 | NUR ---
AM ROUNDS Pt A/O X4, DENIES PAIN AT THIS TIME...TREMORS NOTED TO BILATERAL HANDS...IVF INFUSING WELL TO LFA...PT MAKES NEEDS KNOWN... CALL LIGHT/PHONE W/IN REACH...NURSE WILL REMAIN IN ROOM AT ALL TIMES
[2017-01-09 08:00] VITALS: BP_SYST 117
[2017-01-09 08:23] LABS: CALCIUM 8.4 mg/dL (8.4-11.0); CREATININE 0.66 mg/dL (0.55-1.30); HEMATOCRIT 33.3 % (36-54); HEMOGLOBIN 11.1 g/dL (14.0-18.0); MEAN CORPUSCULAR HEMOGLOBIN 32 pg (27-31); MEAN CORPUSCULAR HGB CONC 34 % (32-36); MEAN CORPUSCULAR VOLUME 95 fL (79.0-98.0); PLATELET COUNT (AUTO) 180 K/uL (130-430); POTASSIUM 4.1 mmol/L (3.5-5.1); RED CELL DISTRIBUTION WIDTH 14.8 % (9.0-15.0)
[2017-01-09 08:27] LABS: WHITE BLOOD COUNT (AUTO) 3.7 K/uL (4.8-10.8)
[2017-01-09] MEDS: FLUTICASONE PROPIONATE 50 mCg/SPRAY 16 GM NS SCH ×2 (09:00→21:28)
[2017-01-09 09:33] LABS: INR 1.1 (0.80-1.20); PROTHROMBIN TIME 11.4 SECS (9.5-12.5)
[2017-01-09] MEDS: ATORVASTATIN 20 MG TABLET PO SCH (10:08)
[2017-01-09] MEDS: METOPROLOL TARTRATE 50 MG TABLET PO SCH ×2 (10:09→21:27)
[2017-01-09] MEDS: HYDROCHLOROTHIAZIDE 25 MG TABLET (HCTZ) PO SCH (10:09)
[2017-01-09] MEDS: DULoxetine HCL 30 MG CAPSULE.DR (CYMBALTA) PO SCH (10:10)
[2017-01-09] MEDS: ENALAPRIL MALEATE 10 MG TABLET (VASOTEC) PO SCH ×2 (10:10→21:26)
[2017-01-09] MEDS: THIAMINE HCL 100 MG TABLET PO SCH (10:11)
[2017-01-09] MEDS: MULTIVITAMINS TAB 1 TABLET PO SCH (10:11)
[2017-01-09] MEDS: TAMSULOSIN HCL 0.4 MG CAP PO SCH (10:11)
[2017-01-09] MEDS: METHADONE HCL 10 MG TABLET PO SCH ×3 (10:12→21:26)
--- NOTE | 2017-01-09 10:30 | NUR ---
DISCHARGE PLANNING Spoke with Ronna at [facility] still pending insurance auth for bed assignment. Request was faxed yesterday to [facility]. Called [facility] [phone] spoke with Matthias who stated request has not been received and could take up to 5 business days for dept to receive request for review. MARIANO Guerrero made aware. DCP will continue to follow up. Addendum: 01/09/17 at 1141 by Tanesha Kim DP Called [facility] [phone] left voice message for CM requesting return call back. DCP will continue to follow up. Addendum: 01/09/17 at 1406 by Tanesha Kim DP Returned call to MARIANO Rueda at [facility] [phone] who stated SNF not authorized due to no skilled need. Marybeth stated insurance will auth oupt PT and can be arranged with thru [facility] [phone] who will arrange with facility located near patient residence. Marybeth will return call to DCP with options for inpt/outpt detox. MARIANO Guerrero was updated. Addendum: 01/09/17 at 1557 by Tanesha ANTOINE Called MARIANO Rueda at [facility] [phone] left voice message requesting return call back. Patient discharge pending contracted list of inpt/outpt detox facilities and contracted list for home health. [facility] will continue to follow up. Addendum: 01/09/17 at 1607 by Tanesha ANTOINE Called patient robert Angeles [phone] who was updated and agreeable with home health PT and/or oupt/inpt rehab for detox pending upon what insurance will authorize. Alexa made aware DCP will keep her updated. MARIANO Guerrero was made aware.
[2017-01-09] MEDS: FOLIC ACID 1 MG, THIAMINE HCL 100 MG, MAGNESIUM SULFATE 1 GM, MVI 10 ML in NACL 0.9% 1,... IV SCH (10:55)
[2017-01-09 10:56] LABS: ATYPICAL LYMPHOCYTES % 0 % (0-0); BAND % (MANUAL) 0 % (0-6); BASOPHILS % (MANUAL) 0 % (0-2); EOSINOPHILS % (MANUAL) 3 % (0-7); LYMPHOCYTES % (MANUAL) 16 % (20-46); MONOCYTES % (MANUAL) 23 % (0-11)
[2017-01-09] MEDS: MAGNESIUM SULFATE 50 ML IV PRN (10:56)
--- NOTE | 2017-01-09 11:00 | NUR ---
DR MENJIVAR AT BEDSIDE
--- NOTE | 2017-01-09 11:15 | NUR ---
INFORMED DR MENJIVAR ABOUT PTS CONTINUED HICCUPS
[2017-01-09] MEDS ORDERED: SIMETHICONE 80 MG TAB.CHEW PO ONE (11:30)
--- NOTE | 2017-01-09 11:30 | NUR ---
SIMETHICONE GIVEN FOR HICCUPS
--- NOTE | 2017-01-09 11:40 | NUR ---
PT AMBULATED TO RESTROOM WITH STAND BY ASSISTANCE
--- NOTE | 2017-01-09 11:44 | NUR ---
PT OUT OF ROOM WITH PHYSICAL THERAPY
--- NOTE | 2017-01-09 12:00 | NUR ---
NO NOTICABLE HICCUPS AT THIS TIME
--- NOTE | 2017-01-09 12:49 | NUR ---
PT SITTING UP IN BED EATING LUNCH COMFORTABLE...WILL CONT TO MONITOR
[2017-01-09] MEDS: SIMETHICONE 80 MG TAB.CHEW PO SCH ×3 (13:00→21:26)
--- NOTE | 2017-01-09 14:51 | NUR ---
IV RE-INSERTION: IV site infiltrated to LFA. Restarted on RFA 20g . Successful after second attempt. Resumed current IVF of NS and regulated @ 55 per hour. Will observe for any signs of infiltration.
[2017-01-09 14:56] VITALS: BP_SYST 120
--- NOTE | 2017-01-09 16:23 | NUR ---
RESTING COMFORTABLY DENIES PAIN..SITTING UP WATCHING TV
--- NOTE | 2017-01-09 16:43 | NUR ---
LEATHER PATCHER AT BEDSIDE
--- NOTE | 2017-01-09 16:53 | NUR ---
Social Service Note: CLINICAL APPEALS SPECIALIST placed call to pt's , Alexa ([phone]); pt's would like pt to enter an inpatient/outpatient program for pt's alcohol use once discharged from the hospital if pt cannot go to SNF. CLINICAL APPEALS SPECIALIST spoke with pt's about different options; pt has gone to [facility] several times; pt's states that they have invested over $25,000 in pt's treatment for alcohol use. [place] City Editor has requested a list of outpatient/inpatient substance abuse programs that are covered by pt's insurance. CLINICAL APPEALS SPECIALIST alerted pt's that CLINICAL APPEALS SPECIALIST would meet with pt and provide pt with a general list of substance abuse treatment facilities in the area that offer inpatient/outpatient/residential programs. CLINICAL APPEALS SPECIALIST met with pt at bedside; pt cooperative during assessment. Pt confirms that he has been to several treatment programs and was in one outpatient program for 13 months and once out pt resumed drinking alcohol. Pt states that he is "100% on board to go to a treatment program" upon discharge. Pt later in conversation stated that he would like to go "to a different home than where is is currently staying". Pt states that he and his own several homes. Pt states that his is sometimes the reason that he drinks. CLINICAL APPEALS SPECIALIST spoke with pt about the different treatment options; pt states that he has been to several different programs and they never work. Pt does not appear very motivated to maintain sobriety. Pt stated that he will look over the resources and will wait for the [place] finished goods planner to get a list approved by the insurance. [facility] has updated DC finished goods planner. CLINICAL APPEALS SPECIALIST will remain available for support and will follow up as needed for support and DC planning.
[2017-01-09] MEDS: WARFARIN SODIUM 4 MG TABLET PO SCH (17:34)
--- NOTE | 2017-01-09 17:38 | NUR ---
DR ZAVALA AT BEDSIDE
[2017-01-09 19:15] VITALS: BP_SYST 143
--- NOTE | 2017-01-09 19:15 | NUR ---
INITIAL NOTES RECVD PT SITTING IN BED. PT IS A/A/O X1 WITH EPISODES OF CONFUSION/ DISORIENTATION. IV NOTED TO L HAND G 20 NO INFILTRATE WITH, WITH GOOD BLOOD RETURN. BUE ARE STRONG, WITH WEAKNESS TO BLE NOTED. BED IN LOW POSITION WITH CALL LIGHT WITHIN REACH, WILL CONT TO MONITOR.
--- NOTE | 2017-01-09 21:15 | NUR ---
ROUNDS PT IS SITTING IN BED WATCHING TV. NO S/S OF PAIN OR ANY DISTRESS NOTED. BED IN LOW POSITION WITH CALL LIGHT WITHIN REACH. WILL CONT TO MONITOR.
[2017-01-09] MEDS: traZODone HCL 50 MG TABLET (DESYREL) PO SCH (21:26)
[2017-01-09] MEDS: ENOXAPARIN SODIUM 40 MG/0.4 ML SYRINGE SUBCUT SCH (21:28)
--- NOTE | 2017-01-09 23:15 | NUR ---
ASSISTED TO B/R ASSISTED PT TO B/R WITH A WALKER AND SAFELY BACK TO BED. LEFT BED IN LOW POSITION WITH SIDE RAILS UP X2. CALL LIGHT WITHIN REACH
[2017-01-10 00:49] VITALS: BP_SYST 124
--- NOTE | 2017-01-10 01:15 | NUR ---
ASSISTED TO B/R ASSISTED TO B/R AND SAFELY BACK TO BED. NO S/S OF ANY DISTRESS NOTED. CALL LIGHT IN REACH, WILL CONT TO MONITOR.
[2017-01-10] MEDS: MORPHINE 2 MG/ML INJ. SYRINGE IVP PRN (02:32)
[2017-01-10] MEDS: chlordiazePOXIDE HCL 25 MG CAPSULE PO PRN (02:58)
--- NOTE | 2017-01-10 03:12 | NUR ---
ADMIN MORPHINE PRN FOR PAIN ADMIN MORPHINE PRN FOR BACK PAIN. WILL REASSESS AFTER ONE HOUR.
[2017-01-10 04:00] VITALS: BP_SYST 123
--- NOTE | 2017-01-10 05:12 | NUR ---
ASSISTED TO B/R ASSISTED PT TO B/R AND SAFELY BACK TO BED. NO S/S OF ANY DISTRESS NOTED. LEFT BED IN LOW POSITION WITH CALL LIGHT WITHIN REACH. WILL CONT TO MONITOR.
[2017-01-10] MEDS: NACL 0.9% 1,000 ML IV SCH (06:03)
[2017-01-10 06:34] LABS: EOSINOPHILS # (AUTO) 0.1 K/uL (0.0-0.4); HEMOGLOBIN 11.1 g/dL (14.0-18.0); LYMPHOCYTES # (AUTO) 0.3 K/uL (1.0-5.5); NEUTROPHILS # (AUTO) 3.8 K/uL (1.8-7.7); NEUTROPHILS % (AUTO) 71.2 % (40.0-70.0); WHITE BLOOD COUNT (AUTO) 5.2 K/uL (4.8-10.8)
[2017-01-10 06:37] LABS: CALCIUM 8.7 mg/dL (8.4-11.0); CREATININE 0.63 mg/dL (0.55-1.30); POTASSIUM 3.9 mmol/L (3.5-5.1)
[2017-01-10 06:54] LABS: BASOPHILS % (AUTO) 0.3 % (0.0-2.0); EOSINOPHILS % (AUTO) 2.4 % (0.0-4.0); HEMATOCRIT 33.2 % (36-54); LYMPHOCYTES % (AUTO) 6.6 % (20.5-51.5); MEAN CORPUSCULAR HEMOGLOBIN 32 pg (27-31); MEAN CORPUSCULAR HGB CONC 33 % (32-36); MEAN CORPUSCULAR VOLUME 96 fL (79.0-98.0); MONOCYTES % (AUTO) 19.5 % (1.7-9.3); PLATELET COUNT (AUTO) 196 K/uL (130-430); RED BLOOD CELL COUNT(AUTO) 3.46 MIL/uL (4.2-6.2); RED CELL DISTRIBUTION WIDTH 14.4 % (9.0-15.0)
--- NOTE | 2017-01-10 08:00 | NUR ---
initial rounds: pt on bed. awake, alert and oriented. stable. discussed plan of care. safety in placed. call light within reach.
[2017-01-10] MEDS: FLUTICASONE PROPIONATE 50 mCg/SPRAY 16 GM NS SCH (09:20)
[2017-01-10] MEDS: ATORVASTATIN 20 MG TABLET PO SCH (09:22)
[2017-01-10] MEDS: TAMSULOSIN HCL 0.4 MG CAP PO SCH (09:22)
[2017-01-10] MEDS: MULTIVITAMINS TAB 1 TABLET PO SCH (09:23)
[2017-01-10] MEDS: HYDROCHLOROTHIAZIDE 25 MG TABLET (HCTZ) PO SCH (09:23)
[2017-01-10] MEDS: SIMETHICONE 80 MG TAB.CHEW PO SCH ×2 (09:24→12:34)
[2017-01-10] MEDS: DULoxetine HCL 30 MG CAPSULE.DR (CYMBALTA) PO SCH (09:24)
[2017-01-10] MEDS: METHADONE HCL 10 MG TABLET PO SCH ×2 (09:24→14:01)
[2017-01-10] MEDS: METOPROLOL TARTRATE 50 MG TABLET PO SCH (09:24)
[2017-01-10] MEDS: THIAMINE HCL 100 MG TABLET PO SCH (09:25)
[2017-01-10] MEDS: ENALAPRIL MALEATE 10 MG TABLET (VASOTEC) PO SCH (09:25)
[2017-01-10 09:31] VITALS: BP_SYST 120
--- NOTE | 2017-01-10 09:31 | NUR ---
rounds: pt on bed sitting. remind to call for help.
[2017-01-10] MEDS ORDERED: RIVA15TA PO (09:43)
[2017-01-10] MEDS: FOLIC ACID 1 MG, THIAMINE HCL 100 MG, MAGNESIUM SULFATE 1 GM, MVI 10 ML in NACL 0.9% 1,... IV SCH (10:18)
[2017-01-10 12:38] VITALS: BP_SYST 104
[2017-01-10] MEDS: HYDROcodone/ACETAMIN 10-325 MG TAB PO PRN (12:41)
--- NOTE | 2017-01-10 12:42 | NUR ---
rounds: pt on bed having lunch. stable.
[2017-01-10 13:06] VITALS: BP_SYST 104
--- NOTE | 2017-01-10 13:35 | NUR ---
communication with : Informed , Alexa, of patient is discharge home and he is ready to be picked up.
--- NOTE | 2017-01-10 14:32 | NUR ---
D/C Patient Patient given medication reconciliation form and D/C instructions. Exit Care provided. Patient verbalized understanding. MD discussed with patient the results and treatment provided. Ambulatory with steady gait for discharge to home. Patient in stable condition, ID band removed. IV catheter removed, intact and dressing applied, no active bleeding. Rx of Xaralto given. Patient educated on pain management. All belongings sent with patient.
--- NOTE | 2017-01-11 12:13 | NUR ---
DC Planning: Returned call to MARIANO Merida at [facility] but unable to leave message "voice mail is full". Fuad inquired update info and dc date. CB #[phone]-- TVRN
== END 2017-01-10 14:32 | disposition home or self-care (01) | DRG 896 ==
LOC: SED 14:56 → SMU 22:50 → INTOOBSV 22:51 → OBSVTOIN 22:51 → UNDOADMOB 22:51 → SMU 22:51 → OBSVTOIN 01-06 11:17 → SMU 01-06 11:17
PROVIDERS: ADMIT General Practice; ATTEND General Practice
PROC: HZ2ZZZZ Detoxification Services for Substance Abuse Treatment (ICD-10-PCS; principal; 2017-01-07)
DX: F10.229 Alcohol dependence with intoxication, unspecified (principal); G92 Toxic encephalopathy; E44.0 Moderate protein-calorie malnutrition; F11.20 Opioid dependence, uncomplicated; E87.1 Hypo-osmolality and hyponatremia; E87.6 Hypokalemia; E78.5 Hyperlipidemia, unspecified; M54.30 Sciatica, unspecified side; M47.816 Spondylosis without myelopathy or radiculopathy, lumbar region; I25.10 Atherosclerotic heart disease of native coronary artery without angina pectoris; I10 Essential (primary) hypertension; G89.29 Other chronic pain; F32.9 Major depressive disorder, single episode, unspecified; K21.9 Gastro-esophageal reflux disease without esophagitis; J45.909 Unspecified asthma, uncomplicated; G31.2 Degeneration of nervous system due to alcohol; R74.0 Nonspecific elevation of levels of transaminase and lactic acid dehydrogenase [LDH]; F17.200 Nicotine dependence, unspecified, uncomplicated; G40.909 Epilepsy, unspecified, not intractable, without status epilepticus; F41.9 Anxiety disorder, unspecified; Z86.718 Personal history of other venous thrombosis and embolism; Z91.14 Patient's other noncompliance with medication regimen; Z79.01 Long term (current) use of anticoagulants; Z68.28 Body mass index [BMI] 28.0-28.9, adult; Z85.038 Personal history of other malignant neoplasm of large intestine
CPT/HCPCS: 36415; 70450-TC; 70486-TC; 71010; 72125-TC; 76700-TC; 80048; 80053; 83735-TC; 84484; 85007; 85025; 85027; 85610-TC; 93005; 96361; 96372; 96374; 96375; 96376; 97110-GP; 97116-GP; 97530-GP; 99285; G0482; J1200; J1630; J1650; J2060; J2270; J3360; J3411; J3475; J3480; J3490; J7030; J7050; J7060

== ENCOUNTER 2017-08-23 19:45 | Emergency (ER) | payer OTHER ==
[~2017-08-23] VITALS: Ht 177.8 cm; Wt 86.2 kg
[~2017-08-23 19:45] MED LIST changes: +RIVA15TA PO; -WARF2.5T2 PO
[2017-08-23 19:48] VITALS: BP_SYST 146
[2017-08-23 20:38] LABS: HEMOGLOBIN 9.7 g/dL (14.0-18.0); MEAN CORPUSCULAR HEMOGLOBIN 28 pg (27-31); MEAN CORPUSCULAR HGB CONC 32 % (32-36); MEAN CORPUSCULAR VOLUME 85 fL (79.0-98.0); PLATELET COUNT (AUTO) 224 K/uL (130-430); RED BLOOD CELL COUNT(AUTO) 3.53 MIL/uL (4.2-6.2); RED CELL DISTRIBUTION WIDTH 19.5 % (9.0-15.0)
[2017-08-23 20:49] LABS: CALCIUM 8.6 mg/dL (8.4-11.0); CREATININE 0.62 mg/dL (0.55-1.30); POTASSIUM 3.8 mmol/L (3.5-5.1)
[2017-08-23 20:54] LABS: ALBUMIN 3.1 g/dL (3.4-4.8); TOTAL BILIRUBIN 0.3 mg/dL (0.0-1.0)
[2017-08-23] MEDS ORDERED: THIAMINE HCL 100 MG TABLET PO SCH (21:00)
[2017-08-23] MEDS ORDERED: DIPH-TET-PERTUS Vaccine 0.5 ML VIAL (ADACEL) IM ONE (21:00)
[2017-08-23] MEDS ORDERED: LORazepam 2 MG/ML VIAL (FOR ER USE) IVP ONE (21:00)
[2017-08-23] MEDS ORDERED: NACL 0.9% 1,000 ML IV ONE (21:00)
[2017-08-23] MEDS ORDERED: FOLIC ACID 1 MG TABLET PO SCH (21:00)
[2017-08-23] MEDS ORDERED: BACITRACIN 1 GM OINT TP ONE (21:00)
[2017-08-23] MEDS ORDERED: LIDOCAINE/EPI 1% 1:100000 20 ML VIAL IJ ONE (21:00)
[2017-08-23 21:07] LABS: BAND % (MANUAL) 0 % (0-6); BASOPHILS % (MANUAL) 0 % (0-2); EOSINOPHILS % (MANUAL) 0 % (0-7); LYMPHOCYTES % (MANUAL) 22 % (20-46); MONOCYTES % (MANUAL) 12 % (0-11)
[2017-08-23] MEDS ORDERED: FOLIC ACID 1 MG TABLET ONE (21:18)
[2017-08-23] MEDS ORDERED: THIAMINE HCL 100 MG TABLET ONE (21:19)
[2017-08-24 00:50] VITALS: BP_SYST 124
== END 2017-08-24 01:05 | disposition home or self-care (01) ==
LOC: SED 19:45
DX: S01.01XA Laceration without foreign body of scalp, initial encounter (principal); F10.129 Alcohol abuse with intoxication, unspecified; I25.2 Old myocardial infarction; E11.9 Type 2 diabetes mellitus without complications; I10 Essential (primary) hypertension; K21.9 Gastro-esophageal reflux disease without esophagitis; Z85.038 Personal history of other malignant neoplasm of large intestine; Z79.899 Other long term (current) drug therapy; Z86.718 Personal history of other venous thrombosis and embolism; W18.30XA Fall on same level, unspecified, initial encounter; Y93.89 Activity, other specified; Y92.89 Other specified places as the place of occurrence of the external cause; Y99.8 Other external cause status
CPT/HCPCS: 12002; 36415; 70450; 80053; 85007; 85027; 90471; 90715; 96361; 96374; 99285; G0482; J2060

== ENCOUNTER 2018-03-28 20:19 | Emergency (ER) | payer OTHER ==
[~2018-03-28] VITALS: Ht 177.8 cm; Wt 81.6 kg
[2018-03-28 20:20] VITALS: BP_SYST 159
[2018-03-28] MEDS ORDERED: NACL 0.9% 1,000 ML IV ONE (20:31)
[2018-03-28] MEDS ORDERED: MORPHINE 4 MG/ML INJ. SYRINGE IVP ONE (20:45)
[2018-03-28] MEDS ORDERED: DIPHENHYDRAMINE INJ 50 MG/ML VIAL IVP ONE (20:45)
[2018-03-28 20:50] LABS: BASOPHILS % (AUTO) 0.3 % (0.0-2.0); EOSINOPHILS # (AUTO) 0.1 K/uL (0.0-0.4); EOSINOPHILS % (AUTO) 1.1 % (0.0-4.0); HEMATOCRIT 35.5 % (36-54); HEMOGLOBIN 11.6 g/dL (14.0-18.0); LYMPHOCYTES # (AUTO) 0.4 K/uL (1.0-5.5); LYMPHOCYTES % (AUTO) 8.8 % (20.5-51.5); MEAN CORPUSCULAR HEMOGLOBIN 30 pg (27-31); MEAN CORPUSCULAR HGB CONC 33 % (32-36); MEAN CORPUSCULAR VOLUME 92 fL (79.0-98.0); MONOCYTES # (AUTO) 0.7 K/uL (0.0-1.0); MONOCYTES % (AUTO) 14.9 % (1.7-9.3); NEUTROPHILS # (AUTO) 3.5 K/uL (1.8-7.7); NEUTROPHILS % (AUTO) 74.9 % (40.0-70.0); PLATELET COUNT (AUTO) 165 K/uL (130-430); RED BLOOD CELL COUNT(AUTO) 3.86 MIL/uL (4.2-6.2); RED CELL DISTRIBUTION WIDTH 16.2 % (9.0-15.0); WHITE BLOOD COUNT (AUTO) 4.7 K/uL (4.8-10.8)
[2018-03-28 21:03] LABS: CALCIUM 9.3 mg/dL (8.4-11.0); CREATININE 0.78 mg/dL (0.55-1.30); POTASSIUM 4.3 mmol/L (3.5-5.1)
[2018-03-28 21:04] LABS: PROTHROMBIN TIME 10.3 SECS (9.5-12.5)
[2018-03-28 21:08] LABS: ALBUMIN 3.5 g/dL (3.4-4.8); TOTAL BILIRUBIN 0.8 mg/dL (0.0-1.0)
[2018-03-28] MEDS ORDERED: fentaNYL CITRATE/PF 100 MCG/2 ML AMP IVP ONE (21:45)
[2018-03-28] MEDS ORDERED: BACL20TA PO (22:00)
[2018-03-28] MEDS ORDERED: PRIM50TA27 PO (22:00)
[2018-03-28 22:56] LABS: BILIRUBIN,URINE NEGATIVE (NEGATIVE); BLOOD, URINE NEGATIVE (NEGATIVE); CLARITY/URINE CLEAR (CLEAR); COLOR,URINE YELLOW (YELLOW); GLUCOSE,URINE NEGATIVE (NEGATIVE); KETONES,URINE NEGATIVE (NEGATIVE); LEUKOCYTE ESTERASE ,URINE NEGATIVE (NEGATIVE); NITRITE, URINE NEGATIVE (NEGATIVE); PH,URINE 5.5 (5.0-8.0); PROTEIN URINE NEGATIVE (NEGATIVE)
[2018-03-29] MEDS ORDERED: DIPHENHYDRAMINE INJ 50 MG/ML VIAL IVP ONE (01:15)
[2018-03-29] MEDS ORDERED: fentaNYL CITRATE/PF 100 MCG/2 ML AMP IVP ONE (01:15)
[2018-03-29 02:01] VITALS: BP_SYST 145
== END 2018-03-29 02:01 | disposition home or self-care (01) ==
LOC: SED 20:19
DX: M54.31 Sciatica, right side (principal); I10 Essential (primary) hypertension; I25.2 Old myocardial infarction; K21.9 Gastro-esophageal reflux disease without esophagitis; E11.9 Type 2 diabetes mellitus without complications; Z85.038 Personal history of other malignant neoplasm of large intestine; Z95.1 Presence of aortocoronary bypass graft; Z86.718 Personal history of other venous thrombosis and embolism; Z79.899 Other long term (current) drug therapy
CPT/HCPCS: 36415; 71045; 72170; 73502; 80053; 81003; 83880; 84484; 85025; 85610; 85730; 93005; 93971; 96374; 96375; 96376; 99285; J1200 ×2; J3010 ×2; J7030; J2270